=== PATIENT | male | born 1995 | race Two or more races ===

== ENCOUNTER 2022-07-22 00:21 | Emergency (ER) | payer SELFPAY ==
[~2022-07-22] VITALS: Ht 177.8 cm; Wt 74.8 kg
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
[2022-07-22] MEDS ORDERED: IBUPROFEN 600 MG TABLET ONE (02:10)
--- NOTE | 2022-07-22 02:20 | NUR ---
XRAY AT BEDSIDE
[2022-07-22] MEDS ORDERED: IBUPROFEN 600 MG TABLET PO ONE (02:30)
[2022-07-22] MEDS ORDERED: IBUP-1957 PO (03:15)
--- NOTE | 2022-07-22 03:28 | NUR ---
Patient discharged to home in stable condition. Written and verbal after care instructions given. Patient verbalizes understanding of instruction. Pt. stable with crutches.
[2022-07-22 03:34] VITALS: BP 120/65
== END 2022-07-22 03:35 | disposition home or self-care (01) ==
LOC: ER 00:22
DX: S90.31XA Contusion of right foot, initial encounter (principal); V89.2XXA Person injured in unspecified motor-vehicle accident, traffic, initial encounter; Y93.89 Activity, other specified; Y92.89 Other specified places as the place of occurrence of the external cause; Y99.8 Other external cause status
CPT/HCPCS: 73630-TC